=== PATIENT | male | born 2000 | race American Indian/Alaskan Native ===

== ENCOUNTER 2019-12-18 00:20 | Emergency (ER) | payer SELFPAY ==
[2019-12-18 00:32] VITALS: BP 156/83
[2019-12-18] MEDS ORDERED: IPRATROPIUM 0.02% NEBU 2.5 ML IH ONE (00:38)
[2019-12-18] MEDS ORDERED: dexAMETHasone 20 MG/5 ML VIAL IM ONE (00:38)
[2019-12-18] MEDS ORDERED: ALBUTEROL 2.5 MG/3 ML NEBU IH ONE (00:38)
--- NOTE | 2019-12-18 00:39 | Emergency Department Report ---
ED Asthma HPI - General Chief Complaint: Adult Asthma Stated Complaint: THROAT CLOSING,DEJA,NUMB BODY Time Seen by Provider: 12/18/19 00:37 Source: patient Mode of arrival: Ambulatory Limitations: No Limitations - History of Present Illness Initial Comments: 19-year-old -[place] male presents to the emergency room complaining of shortness of breath and wheezing since this morning. Patient states he has been using his inhaler but no improvement. Patient has a history of asthma. Patient denies any fever chills no nausea no vomiting no chest pain. -: This morning Asthma History: history of prior ED visit Severity: moderate Associated Symptoms: denies: fever, chest pain, hemoptysis, leg edema Treatments Prior to Arrival: inhaled bronchodilator - Related Data Current Asthma Therapy: inhaled bronchodilator Previous Rx's Medication Instructions Recorded Last Taken Type ALBUTEROL NEB's [Proventil 0.083% 2.5 mg IH Q4H PRN #1 box 12/18/19 Unknown Rx NEBS] Albuterol Sulfate [Proventil Hfa] 6.7 gm IH QID PRN #1 hfa.aer.ad 12/18/19 Unknown Rx predniSONE [Deltasone] 50 mg PO QDAY #5 tab 12/18/19 Unknown Rx Allergies Allergy/AdvReac Type Severity Reaction Status Date / Time No Known Allergies Allergy Verified 01/27/16 02:20 ED Review of Systems ROS: Stated complaint: THROAT CLOSING,DEJA,NUMB BODY Other details as noted in HPI Comment: All other systems reviewed and negative ED Past Medical Hx - Past Medical History Previous Medical History?: Yes Hx Diabetes: No Hx Renal Disease: No Hx Sickle Cell Disease: No Hx Seizures: No Hx Asthma: Yes Hx HIV: No - Surgical History Past Surgical History?: No - Social History Smoking Status: Never Smoker Substance Use Type: Alcohol - Medications Home Medications: Home Medications Medication Instructions Recorded Confirmed Last Taken Type ALBUTEROL NEB's [Proventil 0.083% 2.5 mg IH Q4H PRN #1 box 12/18/19 Unknown Rx NEBS] Albuterol Sulfate [Proventil Hfa] 6.7 gm IH QID PRN #1 hfa.aer.ad 12/18/19 Unknown Rx predniSONE [Deltasone] 50 mg PO QDAY #5 tab 12/18/19 Unknown Rx ED Physical Exam - General Limitations: No Limitations General appearance: alert, in no apparent distress - Head Head exam: Present: atraumatic, normocephalic - Eye Eye exam: Present: normal appearance - ENT ENT exam: Present: mucous membranes moist - Respiratory Respiratory exam: Present: decreased breath sounds (Right side) - Cardiovascular Cardiovascular Exam: Present: regular rate, normal rhythm. Absent: systolic murmur, diastolic murmur, rubs, gallop - GI/Abdominal GI/Abdominal exam: Present: soft, normal bowel sounds - Extremities Exam Extremities exam: Present: normal inspection, full ROM - Back Exam Back exam: Present: normal inspection, full ROM - Neurological Exam Neurological exam: Present: alert, oriented X3, normal gait - Psychiatric Psychiatric exam: Present: normal affect, normal mood - Skin Skin exam: Present: warm, dry, intact, normal color. Absent: rash ED Course Vital Signs 12/17/ 00:23 Temperature 97.6 F Pulse Rate 88 Respiratory 20 Rate Blood Pressure 156/83 O2 Sat by Pulse 100 Oximetry ED Medical Decision Making - Medical Decision Making 19-year-old -[place] male presents to the emergency room complaining of shortness of breath and wheezing since this morning. Patient states he has been using his inhaler but no improvement. Patient has a history of asthma. Patient denies any fever chills no nausea no vomiting no chest pain. Chest x-ray is negative for any acute abnormalities. Patient was given a DuoNeb and dexamethasone 10 mg IM. Patient be discharged home on a prednisone a prescription for albuterol nebulizers solution and inhaler. Patient is instructed to follow-up with a primary care provider. Critical care attestation.: If time is entered above; I have spent that time in minutes in the direct care of this critically ill patient, excluding procedure time. ED Disposition Clinical Impression: Asthma exacerbation Disposition: DC-01 TO HOME OR SELFCARE Is pt being admited?: No Does the pt Need Aspirin: No Condition: Stable Instructions: Asthma (ED) Additional Instructions: Complete your steroids as prescribed. Use your inhaler or nebulizer as prescribed. Follow-up with a primary care provider or oil plant operator. Prescriptions: predniSONE [Deltasone] 50 mg PO QDAY #5 tab ALBUTEROL NEB's [Proventil 0.083% NEBS] 2.5 mg IH Q4H PRN #1 box PRN Reason: Wheezing Albuterol Sulfate [Proventil Hfa] 6.7 gm IH QID PRN #1 hfa.aer.ad PRN Reason: Shortness Of Breath Referrals: [facility] [Provider Group] - 3-5 Days SHUBHAM TSE MD [Staff Physician] - 3-5 Days Forms: Work/School Release Form(ED)
--- NOTE | 2019-12-18 01:15 | XRay Report ---
CHEST 1 VIEW, 12/18/2019 12:57 AM CLINICAL INFORMATION/INDICATION: Shortness of breath COMPARISON: Chest radiograph, 02/14/2016 FINDINGS: SUPPORT DEVICES: None. HEART: The cardiac silhouette is normal in size. LUNGS/PLEURA: The lungs are clear of focal airspace disease or significant pleural effusion. ADDITIONAL FINDINGS: No additional acute findings. IMPRESSION: 1. No evidence of acute cardiopulmonary process. Signer Name: Maritza Casey MD Signed: 12/18/2019 1:10 AM Workstation Name: [id number]
== END 2019-12-18 01:49 | disposition home or self-care (01) ==
LOC: ED 00:20
DX: J45.901 Unspecified asthma with (acute) exacerbation (principal)
CPT/HCPCS: 71045; 94644; 96372; 99283; J1100